=== PATIENT | female | born 1995 | race African-American/Black ===

== ENCOUNTER 2019-01-01 16:21 | Emergency (ER) | payer SELFPAY ==
[2019-01-01] MEDS ORDERED: Ketorolac Tromethamine 30 MG/ML VIAL ONE (16:59)
[2019-01-01] MEDS ORDERED: Cyclobenzaprine 10 MG TAB ONE (16:59)
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
== END 2019-01-01 17:31 | disposition home or self-care (01) ==
LOC: ERS 16:21
DX: S29.012A Strain of muscle and tendon of back wall of thorax, initial encounter (principal); V43.52XA Car driver injured in collision with other type car in traffic accident, initial encounter
CPT/HCPCS: 71045; 96372; J1885